=== PATIENT | male | born 1945 | race Caucasian/White ===

== ENCOUNTER 2017-10-03 09:23 | Observation (INO) | payer MEDICARE ==
--- NOTE | 2017-09-14 10:11 | HP ---
CC: Dr. Stephan Diaz * HISTORY AND PHYSICAL: DATE OF PLANNED ADMISSION AND SURGERY: 10/03/17 HISTORY OF PRESENT ILLNESS: Mr. Hong is a 72-year-old white male who is admitted with prostate enlargement, bladder outlet obstruction and recurrent episodes of acute prostatitis for transurethral resection of the prostate. I have been following Mr. Hong for almost 20 years because of prostate nodule, bladder outlet obstruction, and recurrent episodes of gross hematuria. He had a total of 5 prostate biopsies because of a hard nodule noted in the right lobe of the prostate. The last biopsy was done in 2005. The biopsies showed chronic and acute prostatitis, but no malignancy. The patient has had frequent and recurrent episodes of acute prostatitis, some of them associated with fever and chills and gross hematuria. He had workup of his upper tracts which were normal, cystoscopy which showed an enlarged and obstructing prostate with bladder trabeculations. He was started on finasteride in 2011 and was then placed on tamsulosin. His voiding symptoms improved; however, he continued to have recurrent episodes of acute prostatitis with the last episode occurring about 4 months ago. He had recent repeat work-up with cystoscopy, which again showed an enlarged and obstructing prostate, and bladder trabeculations. Urodynamic studies showed a high voiding detrusor pressure of 70 cm of water. His flowmetry was slow with a peak flow of 5 mL per second. His post void residual, however, was mildly elevated at 50 cc. Because of the above history and findings, the recurrent episodes of acute prostatitis and the fact that his obstructive voiding symptoms have not fully resolved on the medical treatment, a TURP was advised and accepted. PAST MEDICAL HISTORY AND SYSTEM REVIEW: He is in very good health. He denies any cardiac or pulmonary diseases or symptoms. MEDICATIONS: He is on no other chronic medications. ALLERGIES: He denies any allergies to medications. PHYSICAL EXAMINATION GENERAL: Pleasant and healthy-looking white male who looks good for his age. VITAL SIGNS: Blood pressure 120/70, pulse of 50. LUNGS: Clear. HEART: Regular and rhythmic. No murmurs. ABDOMEN: Soft, no masses, no tenderness, and no CVA tenderness. GENITOURINARY: External genitalia are normal. He has no inguinal hernia. RECTAL: Exam showed a moderately enlarged prostate with a hard nodule in the right lobe, which has been stable over the last 10 years. LABORATORY DATA: His last PSA last month was stable at 2.8. IMPRESSION: 1. Bladder outlet obstruction and prostate enlargement with partial improvement on full medical treatment with tamsulosin and finasteride. 2. Recurrent episodes of acute prostatitis occurring while on full treatment for the prostate enlargement and bladder outlet obstruction. 3. Stable firm nodule of the prostate with multiple negative prostate biopsies and stable PSA. PLAN: For transurethral resection of the prostate. I discussed the operation in detail with the patient. Some of the potential complications including gross hematuria, infection, small incidence of urethral stricture, invariable occurrence of retrograde ejaculation. The procedure will improve his bladder emptying and his urinary stream and will likely will decrease the frequency of his acute prostatitis episodes, although this is not assured, however, it is likely to help. The plan is to have him start on Bactrim 1 week before the procedure to decrease the risk of post op prostatitis. I discussed the above plans in detail, and all his questions were answered. [id number]/[facility] #: [id number] [place]
[~2017-10-03 09:23] MED LIST: Buffered Lidocaine 0.9% SYRIN* 5 ML/SYR SYRINGE INTRADERM ONE; Famotidine IV* 10 MG/ML 2 ML (20 mg) IV ONE
[2017-10-03] MEDS ORDERED: Buffered Lidocaine 0.9% SYRIN* 5 ML/SYR SYRINGE ONE (09:39)
[2017-10-03] MEDS ORDERED: Famotidine IV* 10 MG/ML 2 ML (20 mg) ONE (09:39)
[2017-10-03] MEDS ORDERED: cefTRIAXone(*) 2 GM ADDV.VIAL IVPB ONE (09:39)
[2017-10-03] MEDS ORDERED: Midazolam* 1 MG/ML 5 ML VIAL (5 MG) ONE (10:59)
[2017-10-03] MEDS ORDERED: fentaNYL* 50 MCG/ML 2 ML VIAL (100 MCG VIAL) ONE (11:15)
[2017-10-03] MEDS ORDERED: Phenylephrine IV* 40 MCG/ML 10 ML SYRINGE ONE (11:47)
[2017-10-03] MEDS ORDERED: EPHEDrine (Pressors)* 50 MG/ML VIAL ONE (11:47)
[2017-10-03] MEDS ORDERED: Lidocaine 2% PF * 5 ML VIAL ONE (11:47)
[2017-10-03] MEDS ORDERED: Propofol* 10 MG/ML 20 ML BTL IV PUSH ONE (11:47)
[2017-10-03] MEDS ORDERED: Ondansetron INJ* 2 MG/ML VIAL ONE (11:47)
[2017-10-03] MEDS ORDERED: Ketorolac INJ* 30 MG/ML 1 ML VIAL ONE (11:47)
[2017-10-03] MEDS ORDERED: oxyCODONE/Acetamin 5/325 MG* TAB PO PRN ×3 (12:21→15:39)
[2017-10-03] MEDS ORDERED: HYDROmorphone INJ* 1 MG/ML CARPUJECT SYRINGE IV PRN (12:21)
[2017-10-03] MEDS ORDERED: DiMENhydriNATE IV* 50 MG/ML VIAL IV PUSH PRN (12:21)
[2017-10-03] MEDS ORDERED: Acetaminophen TAB* 325 MG PO PRN (15:36)
[2017-10-03] MEDS ORDERED: Ibuprofen TAB* 600 MG PO PRN (15:36)
[2017-10-03] MEDS ORDERED: Lidocaine 2% JELLY* 6 ML JELLY TOPICAL PRN (15:39)
[2017-10-03] MEDS ORDERED: Oxybutynin TAB* 5 MG PO PRN (15:40)
--- NOTE | 2017-10-03 17:40 | CONSULT ---
Consult Consult: HOSPITALIST CONSULT: Date of Consultation: 10/03/17 Requesting Provider: Dr. Glover PCP: Dr. Diaz Reason for Consultation: Bradycardia HPI: Mr Hong is a 72 yo M who underwent TURP with Dr Glover earlier today and was noted to be bradycardic in the 40's with an occasional dip into the high 30's while under anesthesia. The patient states that his check his BP/ HR at home with an automated cuff and his HR is most of the time in the 40's. In speaking with Dr. Diaz, his PCP, he relays the patient's most recent HR in the office have been generally bradycardic. He currently denies any lightheadedness, dizziness, chest pain or SOB. He states he is quite active exercising every day. PMHx: HTN (now not on any medications), BPH, peripheral neuropathy and OA. PSHx: TURP, R knee surgery x4 (2 quadriceps tendon repair and 2 meniscus repairs ) and B/L inguinal hernia repairs All: NKDA Medications: Home medications reviewed FamHx: Mom at 78, she had MM; Dad at 65 of suicide. SocHx: Pt is a former smoker quitting approximately 40 years ago. He drinks a small glass of wine nightly. 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 He is and he indicates his is his HCP. He has 3 biologic children and 1 step child-all are healthy. ROS: A complete 11 system review of systems is obtained. Pertinent positives and negatives are as per HPI. PE: BP 114/57 HR 49 RR 16 T 98.1 O2sat 98% on RA gen: elderly male sitting up in bed, NAD HEENT: pupils are round, EOMI, oropharynx is clear and moist, no submandibular, cervical or supraclavicular adenopathy noted. Cardiac: nl S1, S2 bradycardic and slightly irregular. No LE edema Pulmonary: CTA B/L Abdomen: BS + soft, NT, ND, miller in place Musculoskeletal: full active ROM of all 4 extremities, no obvious joint deformities Skin: warm and dry, no rashes Neuro: CN II-XII grossly intact, strength nl in all 4 extremities Psych: A&Ox3 A/P: Mr Hong is a 72 yo M who has a past h/o HTN and peripheral neuropathy is seen in consultation following a TURP for asymptomatic bradycardia. 1. Bradycardia: the patient is completely asymptomatic. He states he still exercises daily without any symptoms. EKG is difficult to interpret but I suspect he has Mobitz type I. Will try to get a longer rhythm strip to confirm. He is not on any AV efrain blockers. Will monitor his VS overnight and monitor for symptoms. The patient has been instructed to alert the nurse if he has any lightheadedness. 2. s/p TURP: management per Dr. Glover 3. DVT-P: SCDs 4. Full code
[2017-10-03] MEDS ORDERED: Finasteride TAB* 5 MG PO SCH (18:00)
--- NOTE | 2017-10-04 04:38 | OP ---
CC: Stephan Diaz MD * DATE OF OPERATION: 10/03/17 - ROOM #339 DATE OF : 41 SURGEON: Santiago Glover MD ANESTHESIOLOGIST: Dr. Godoy ANESTHESIA: Spinal. PREOPERATIVE DIAGNOSES: 1. Benign prostatic hyperplasia. 2. Bladder outlet obstruction due to above. 3. Recurrent episodes of prostatitis. POSTOPERATIVE DIAGNOSES: 1. Benign prostatic hyperplasia. 2. Bladder outlet obstruction due to above. 3. Recurrent episodes of prostatitis. OPERATIVE PROCEDURE: 1. Cystoscopy. 2. Transurethral resection of the prostate. INDICATION FOR PROCEDURE: Mr. Hong is a 72-year-old white male who had a long history of recurrent acute prostatitis episodes. He also had prostate enlargement and bladder outlet obstruction and has been maintained on tamsulosin and on finasteride. Because of increasing voiding symptoms while on full medical treatment and because of persistent recurrent episodes of prostatitis and after workup with cystoscopy and urodynamic studies, TURP was advised and accepted. PATHOLOGY: At cystoscopy, the penile and bulbar urethrae looked normal. The prostatic urethra measured about 3 cm in length. There was significant degree of obstruction by trilobar hyperplasia of the prostate. Examination of the bladder showed moderate diffuse trabeculations. There were no suspicious or bladder lesions seen. No calculi or diverticula were noted. The urethral orifices looked normal. The prostate adenoma was only slightly vascular. PROCEDURE: After successful spinal anesthesia, the patient was placed in the lithotomy position and was prepped and draped for cystoscopy. Cystoscopy was performed. The bladder was carefully inspected and the above findings were noted. The resectoscope was then introduced inside the bladder. Mannitol and sorbitol was used for irrigation. The inflow and outflow were adjusted to avoid overdistention of the bladder. Resection of the median lobe was resected first. The bladder neck was then resected circumferentially. The resectoscope was then positioned at the level of the verumontanum and the resection of the floor of the prostate was performed between 4 o'clock and 7 o' clock allowing the visualization of the bladder neck through the veru. Resection of the left lobe was then performed starting at 5 o'clock and proceeding anteriorly. The right lobe was resected next. The roof and the apical tissues were resected last. The limits of the resection were the veru distally, the capsule circumferentially and the bladder neck proximally. At the completion of the resection, the prostatic urethra was wide open. There was one open sinus at 11 o'clock. There was no capsular perforation. There were no arterial bleeders noted. The ureteral orifices were intact. There were no residual prostate chips after irrigation. The resectoscope was then removed and the size 22-Tunisian Boyer catheter was passed inside the bladder and the balloon inflated with 30 cc of water. The catheter was placed under gentle traction and taped to the right thigh of the patient. Irrigation yielded clear returns. The patient tolerated the procedure well and left the operating room in good condition. The blood loss was estimated at less than 100 cc. The specimen was prostate chips. [id number]/[facility] #: [id number] [facility]
[2017-10-04] MEDS ORDERED: cefTRIAXone(*) 1 GM in D5W 50 ML BAG* 50 ML IVPB ONE (07:00)
[2017-10-04 11:42] VITALS: BP 120/69
--- NOTE | 2017-10-04 23:34 | DS ---
DISCHARGE SUMMARY: DATE OF ADMISSION: 10/03/17 DATE OF DISCHARGE: 10/04/17 FINAL DIAGNOSES: 1. Benign prostatic hyperplasia. 2. Bladder outlet obstruction. 3. Bradycardia. OPERATION: Cystoscopy, transurethral resection of the prostate on 10/03/17. HISTORY: Mr. Hong is a 72-year-old white male who has long history of recurrent episodes of acute prostatitis associated with bladder outlet obstruction and prostate enlargement. He has been maintained on finasteride and on tamsulosin for several years. He recently started having increasing obstructive voiding symptoms and continued to have episodes of prostatitis requiring aggressive antibiotic treatment with the last episode having occurred in March 2017. Workup with cystoscopy showed an enlarged obstructing prostate. Urodynamic studies showed a high voiding detrusor pressure of 70 cm of water with a slow uroflowmetry and a slightly elevated postvoid residual of 50 cc. Because of the above history and findings, TURP was advised and accepted. Past medical history is negative. He was worked up about 5 years ago by Cardiology because of bradycardia and was told it was a benign condition and no treatment was suggested. He has been totally asymptomatic from his heart. He had noted slow pulse in the 40's for several years, and has been asymptomatic. Preoperative physical examination was normal. His blood pressure was 120/70 and his pulse was 50 and regular. The prostate showed a nodule in the right lobe, which has been present for many years and had underwent several prostate biopsies for it. All of the biopsies were benign, showing acute & chronic prostatitis. Lab data all within normal. PSA 2.8. COURSE IN HOSPITAL: The patient was admitted on the morning of his surgery. He underwent an uncomplicated transurethral resection of the prostate under spinal anesthesia. His surgical postoperative course was very smooth. He was, however, observed on telemetry postoperatively overnight because of bradycardia with his heart rate about 40. There were no associated arrhythmias and he was totally asymptomatic having no lightheadedness or shortness of breath or a drop in his blood pressure. He was followed post-op by the hospitalist service for his bradycardia. On his postoperative day #1, the urine was clear and he remained totally asymptomatic with normal vital signs except for the bradycardia. The patient was evaluated by the hospitalist service to observe his overnight monitoring and they felt the condition is chronic and it is safe to discharge him home. He will be seeing Dr. Diaz, his basin finish operator tig welder, next week. The patient is being discharged home on finasteride and on Boyer catheter drainage. He will be seen in my office in 5 days for Boyer catheter removal. Instructions were given for followup care. Pathology on the resected prostate tissue was benign. [id number]/[facility] #: [id number] [place]
== END 2017-10-04 11:40 | disposition home or self-care (01) ==
LOC: OR 09:23 → SSU 15:57
PROVIDERS: ADMIT Urology; ATTEND Urology
DX: N40.1 Benign prostatic hyperplasia with lower urinary tract symptoms (principal); N13.8 Other obstructive and reflux uropathy; R00.1 Bradycardia, unspecified; Z87.891 Personal history of nicotine dependence; I10 Essential (primary) hypertension; M19.90 Unspecified osteoarthritis, unspecified site; N41.8 Other inflammatory diseases of prostate
CPT/HCPCS: 88305; 93005; 96374; 96375; 96376; A9270-GY; G0378; J0696; J1885; J2250; J2405; J2704; J3010

== ENCOUNTER 2019-03-25 07:04 | Observation (INO) | payer MEDICARE ==
[2019-03-25 07:50] LABS: ABS Basophils 0.1 10^3/ul (0-0.2); ABS Eosinophils 0.1 10^3/ul (0-0.6); ABS Lymphocytes 2.1 10^3/ul (1.0-4.8); ABS Monocytes 0.8 10^3/ul (0-0.8); ABS Neutrophils 3.5 10^3/ul (1.5-7.7); Eosinophil % 2.2 %; Hematocrit 44 % (42-52); Hemoglobin 14.8 g/dL (14.0-18.0); Mean Corpuscular HGB Conc 34 g/dL (31-36); Mean Corpuscular Hemoglobin 32 pg (27-31); Mean Corpuscular Volume 94 fL (80-94); Mean Platelet Volume 8.4 fL (7.4-10.4); Nucleated Red Blood Cells % 0.1; Platelet Count 278 10^3/uL (150-450); Red Blood Count 4.69 10^6 /uL (4.18-5.48); Red Cell Distribution Width 13 % (10-15); White Blood Count 6.6 10^3/uL (3.5-10.8)
[2019-03-25] MEDS ORDERED: ceFAZolin VIAL 1 GM in NS *SYRINGE * * 10 ML ONE (08:00)
[2019-03-25] MEDS ORDERED: ceFAZolin* 2 GM* ONE DOSE (Duplex) IVPB (08:00)
[2019-03-25] MEDS ORDERED: Diazepam TAB(*) 5 MG ONE (08:19)
[2019-03-25] MEDS ORDERED: fentaNYL* 50 MCG/ML 2 ML VIAL (100 MCG VIAL) ONE (08:26)
[2019-03-25] MEDS ORDERED: Lidocaine 1% INJ* 10 MG/ML 30 ML SDV ONE (08:26)
[2019-03-25] MEDS ORDERED: Midazolam* 1 MG/ML 5 ML VIAL (5 MG) ONE (08:26)
[2019-03-25] MEDS ORDERED: oxyCODONE/Acetamin 5/325 MG* TAB PO PRN (09:40)
[2019-03-25] MEDS ORDERED: Acetaminophen TAB* 325 MG PO PRN (09:40)
[2019-03-25] MEDS: Metoprolol Tartrate TAB* 25 MG PO SCH ×2 (13:40→20:52)
[2019-03-25] MEDS: ceFAZolin VIAL(*) 1 GM in NS 0.9% 50 ML* 50 ML IVPB SCH (17:04)
[2019-03-25] MEDS ORDERED: Aspirin EC TAB* 81 MG TAB.EC PO SCH (18:00)
--- NOTE | 2019-03-25 21:10 | OP ---
CC: Dr. Simon Oreilly * DATE OF OPERATION: 03/25/19 - ROOM #451 DATE OF : 41 SURGEON: Micah Hernández MD ANESTHESIA: Local anesthesia with conscious sedation. PRE-OP DIAGNOSES: 1. Second-degree heart block. 2. Bradycardia. POST-OP DIAGNOSIS: 1. Second-degree heart block. 2. Bradycardia. OPERATIVE PROCEDURE: Dual-chamber pacemaker implantation. ESTIMATED BLOOD LOSS: Nil. COMPLICATIONS: None. INDICATIONS: The patient is a 74-year-old gentleman, who has been having episodes of significant bradycardia and lightheadedness. An EKG showed second- degree heart block type 2. Permanent pacemaker implantation was recommended. DESCRIPTION OF PROCEDURE: The patient was brought to the procedure room in a fasting state. Informed consent had been obtained prior to the procedure. All labs had been reviewed. The patient was placed supine on the catheterization table. The left deltopectoral area was cleaned and draped in the usual fashion. 1% lidocaine was used for local anesthesia. Under ultrasound guidance , the axillary vein was entered via modified Seldinger technique and a guidewire was placed. A second guidewire was placed in the same technique. A 3.5 cm incision was made in the pectoral area. Blunt dissection was carried down to the pectoral fascia and a pocket was fashioned for the pacemaker. Over the first guidewire, a 6- Sudanese sheath introducer was placed, through which a right ventricular lead was advanced to the septum. The right ventricular lead is a [employer] model 2088TC, serial number [id number] and had an R-wave sensitivity of 6.6, impedance 838 ohms, threshold 1.1 volts at 0.4 milliseconds. The ventricular lead was sutured to the pectoral fascia. Over the second guidewire, a 6-Sudanese sheath introducer was placed, through which a right atrial lead was advanced to the high right atrium. The right atrial lead is a [employer] model 2088TC, serial number [id number]. It had P-wave sensitivity of 2.1, impedance 399 ohms, threshold 0.6 volts at 0.4 milliseconds. The atrial lead was sutured to the pectoral fascia. The pocket was flushed. A generator was attached appropriately to the atrial and ventricular leads. The generator is a [employer] model AJ3526, serial number [id number]. Surgical incision was closed in 3 layers. The patient was sent to the holding area in stable condition. [id number]/[facility] #: [id number] [address] [facility]PITAL[facility]son
[2019-03-26] MEDS: ceFAZolin VIAL(*) 1 GM in NS 0.9% 50 ML* 50 ML IVPB SCH ×2 (00:21→08:28)
[2019-03-26] MEDS: Metoprolol Tartrate TAB* 25 MG PO SCH (08:28)
[2019-03-26] MEDS ORDERED: Finasteride TAB* 5 MG PO SCH (09:00)
--- NOTE | 2019-03-26 10:52 | PN ---
<Alia Varghese - Last Filed: 03/26/19 10:47> Subjective Date of Service: 03/26/19 - s/p DC PPM due to high degree AVB Interval History: No events last night, patient offers no complaints. Denies chest pain, sob, dizziness, palpitations. He is anxious to go home. Medications Active Medications: Acetaminophen (Tylenol Tab*) 650 mg PO Q4H PRN PRN Reason: FEVER/PAIN Aspirin (Aspirin Ec Tab*) 81 mg PO QPM [facility] Last Admin: 03/25/19 17:04 Dose: 81 mg Finasteride (Proscar Tab*) 5 mg PO DAILY [facility] Last Admin: 03/26/19 08:28 Dose: 5 mg Metoprolol Tartrate (Lopressor Tab*) 25 mg PO BID [facility] Last Admin: 03/26/19 08:28 Dose: 25 mg Oxycodone/Acetaminophen (Percocet 5/325 Tab*) 1 tab PO Q4H PRN PRN Reason: PAIN Objective Vital Signs: Temp Pulse Resp BP Pulse Ox 98.2 F 60 16 145/87 95 03/26/19 07:15 03/26/19 07:15 03/26/19 07:15 03/26/19 07:15 03/26/19 09:00 Oxygen Devices in Use Now: None Appearance: well nourished, A+O x3 cooperative with exam Eyes: No Scleral Icterus, PERRLA Neck: NL Appearance and Movements; NL JVP Respiratory: Symmetrical Chest Expansion and Respiratory Effort, Clear to Auscultation Cardiovascular: NL Sounds; No Murmurs; No JVD, No Edema, - - left anterior device site is intact, no hematoma. non tender to palpation. edges well approximated. no oozing noted Abdominal: NL Sounds; No Tenderness; No Distention Extremities: No Edema Skin: No Rash or Ulcers Neurological: Alert and Oriented x 3 Lines/Tubes/Other Access: Clean, Dry and Intact Peripheral IV Laboratory Results: 03/25/19 07:44 Diagnostic Imaging: cxr is pending EKG Data: 03/26/2019; AV Paced rate 100 Telemetry; Paced HR 60'70's Assessment/Plan #1 h/o High degree AVB s/p DC PPM 03/25/[address] Dyevi Hernández. No complications thus far. Device check reviewed. A lead pacing threshold 0.4ms, RV pacing threshold 0.4ms. Device site inspected. No evidence of hematoma. edges are well approximated. No c/o chest pain or SOB. CXR is pending. If negative for pneumothorax then patient is to be discharged later this morning. RX for Keflex 250mg Po TIDx 3 days sent to [facility]. He is to f/u with Dr. Oreilly as planned which is outlined in discharge plan. I reviewed wound care with his present in the room. He is aware that he will need to wear left upper extremity arm immobilizer for 6 weeks. #2 HTN; SBP during admit has been in 140-170's he was started on Lopressor therapy which was sent to his pharmacy. Per outpatient notes last echo 03/18/2019 revealed mild to moderate LVH. #3 DVT prophylaxsis; patient has been up and ambulating #4 Disposition pending course will likely be discharged later this morning after CXR. Attending: Ingrid Wyatt <Ingrid Wyatt - Last Filed: 03/28/19 00:10> Objective Vital Signs: Temp Pulse Resp BP Pulse Ox 98.7 F 60 16 150/94 98 03/26/19 11:08 03/26/19 11:08 03/26/19 11:08 03/26/19 11:08 03/26/19 11:08 Laboratory Results: 03/25/19 07:44 Assessment/Plan 03.28.2019. 12:09 am. pt seen and examined. Plan of care d/w TARIQ Varghese. and Agree with the above plan.
[2019-03-26 11:26] VITALS: BP 150/94
--- NOTE | 2019-03-26 12:22 | DS ---
DISCHARGE SUMMARY: DATE OF ADMISSION: 03/25/19 TENTATIVE DATE OF DISCHARGE: Pending no complications, 03/26/19. ATTENDING PHYSICIAN: Dr. Wyatt, Cardiology.* (DICTATED BY MARYANA TRACY NP ) PRIMARY DISABILITY INSURANCE CLAIM EXAMINER: Dr. Simon Oreilly. PRIMARY PHYSICIAN: Dr. Stephan Diaz. ADMITTING DIAGNOSES: 1. History of high-degree heart block, here for elective pacemaker implant. 2. History of left ventricular hypertrophy. DISCHARGE DIAGNOSES: 1. History of high-degree AV block, status post DC pacemaker, [employer] implant , 03/25/[address] Micah Hernández. To be discharged home on Keflex 250 mg p.o. t.i.d. for 3 days. Follow up with Dr. Simon Oreilly on 04/02/19. 2. Hypertension. During hospital stay, systolic blood pressure 140 to 170. The patient was started on Lopressor therapy, script sent into [facility] [place]. Outpatient echo 03/18/19 revealed [id number] left ventricular hypertrophy. PROCEDURES PERFORMED: On 03/25/19, the patient had successful dual-chamber pacemaker implantation with Dr. Micah Hernández due to high-degree AV block. Right ventricular lead is [employer], model 2088TC, serial number [id number]. Pacing threshold prior to discharge was 0.4 msec. The right atrial lead is a [employer], model 2088TC, serial number [id number]. Pacing threshold prior to discharge 0.[address] is [employer], model LZ1138, serial number [id number]. COMPLICATIONS: None thus far. COURSE OF HOSPITAL STAY: This is a pleasant 74-year-old male patient who follows Dr. Simon Oreilly of our practice. He presented to our practice for evaluation on 03/19/19 due to heart block. Prior ECGs were reviewed according to medical records. Apparently, he had a history of sinus bradycardia several beats that likely conducted with type 1 physiology, although there was AV dissociation with the stable junctional escape rhythm. Echocardiogram 03/18/19 , LVEF of 60% to 65%, [id number] LVH. There is mild pulmonary hypertension, mild to moderate mitral regurgitation. AV conduction and AV dissociation was noted during the study. Recommendation was for pacemaker implantation and Lexiscan stress test to rule out amyloid doses due to AV dissociation. The patient presented to [facility] on 03/25/19 for elective pacemaker implantation. Prior to procedure, he had basic blood work, white count 6.6, hemoglobin 14.8, hematocrit 44, platelets 278. On 03/18/19, sodium was 142, potassium 4.2, chloride 107, carbon dioxide 28, creatinine 0.99. He underwent the above-mentioned procedure, postprocedure he was transferred to [facility] where he has been monitored on telemetry, no complications have occurred. His is at bedside. Left anterior device site was inspected. There is no evidence of hematoma. Edges are well approximated. Scant dried blood noted on dressing, nontender to palpation. Chest x-ray is pending to rule out pneumothorax. This morning, the device interrogation was reviewed. It is essentially normal device interrogation. RV pacing threshold 0.4 msec, right atrial lead pacing threshold 0.4 msec. Thus, pending no complications, the patient will be discharged home later today. Given hypertension during hospital stay, the patient was started on beta- blockade therapy, which he has been tolerating. Prescription will be sent to pharmacy. DRIVING: The patient was instructed to not drive until he follows up with Dr. Simon Oreilly next week on 04/02/19. RESTRICTIONS: The patient is aware to use left upper extremity arm immobilizer for 6 weeks. He is aware that he is not able to lift more than 5 to 10 pounds for 6 weeks. He is aware that he is to not lift left arm above shoulder for 6 weeks. The patient was instructed that he may shower starting tomorrow, 03/27/19 , but is to not soak left anterior device site, i.e., bathe, utilize hot tub or swim. WOUND CARE: I personally reviewed and discussed in detail with the patient and his present. Wound care instructions, which includes changing dressing daily until he follows up with Dr. Simon Oreilly. He is aware that if he develops any swelling, signs or symptoms of infection such as fever, chills, inflammation, or oozing from the device site, to seek medical evaluation. DISCHARGE MEDICATIONS: Includes: 1. Keflex 250 mg p.o. t.i.d. for 3 days. 2. Lopressor 25 mg p.o. b.i.d. 3. Tylenol 650 mg p.o. q.6h. p.r.n. 4. Vitamin D3 1000 units p.o. daily. 5. Finasteride 5 mg a day. 6. Multivitamin 1 tablet daily. 7. Aspirin 81 mg a day. FOLLOWUP APPOINTMENTS: 1. As mentioned before, Dr. Simon Oreilly, 04/02/19 at 0910. 2. Primary physician, Dr. Stephan Diaz, in [address] Wyatt agrees with the above assessment and plan. We will await for chest x- ray. As long as imaging is negative for pneumothorax, he will be discharged home later today. MARYANA TRACY NP [id number]/[facility] #: [id number] [place]
== END 2019-03-26 13:33 | disposition home or self-care (01) ==
LOC: CHICATH 07:04 → MEDTELE 10:06
PROVIDERS: ADMIT Specialist; ATTEND Specialist
DX: I45.5 Other specified heart block (principal); G62.9 Polyneuropathy, unspecified; R00.1 Bradycardia, unspecified; E85.9 Amyloidosis, unspecified; I51.7 Cardiomegaly; I10 Essential (primary) hypertension; Z79.82 Long term (current) use of aspirin; Z79.899 Other long term (current) drug therapy; Z87.891 Personal history of nicotine dependence; K44.9 Diaphragmatic hernia without obstruction or gangrene
CPT/HCPCS: 33207; 36415; 71045; 71046; 85025; 93005; 96365; 96366; 99156; 99157; A9270-GY; C1785; C1898; G0378; J0690; J2250; J3010

== ENCOUNTER 2022-04-24 12:41 | Observation (INO) ==
[2022-04-24 13:45] LABS: ABS Basophils 0.1 10^3/ul (0-0.2); ABS Eosinophils 0.1 10^3/ul (0-0.6); ABS Lymphocytes 1.8 10^3/ul (1.0-4.8); ABS Monocytes 0.8 10^3/ul (0-0.8); ABS Neutrophils 4.7 10^3/ul (1.5-7.7); Eosinophil % 1.2 %; Hematocrit 33 % (42-52); Hemoglobin 10.1 g/dL (14.0-18.0); Lymphocyte % 23.8 %; Mean Corpuscular HGB Conc 30 g/dL (31-36); Mean Corpuscular Hemoglobin 22 pg (27-31); Mean Corpuscular Volume 74 fL (80-94); Mean Platelet Volume 7.2 fL (7.4-10.4); Nucleated Red Blood Cells % 0.1; Platelet Count 359 10^3/uL (150-450); Red Blood Count 4.55 10^6 /uL (4.18-5.48); Red Cell Distribution Width 19 % (10-15); White Blood Count 7.5 10^3/uL (3.5-10.8)
[2022-04-24 14:33] LABS: ALT 7 U/L (7-52); Albumin 4.3 g/dL (3.2-5.2); Albumin/Globulin Ratio 1.3 (1-3); Alkaline Phosphatase 69 U/L (35-149); Blood Urea Nitrogen 22 mg/dL (6-24); CO2 Carbon Dioxide 26 mmol/L (22-32); Calcium 9.7 mg/dL (8.6-10.3); Chloride 103 mmol/L (101-111); Globulin 3.3 g/dL (2-4); Glucose 89 mg/dL (70-100); Sodium 140 mmol/L (135-145); Total Protein 7.6 g/dL (6.4-8.9); eGFR CKD-EPI 57.5 (>60)
[2022-04-24 14:36] LABS: Anion Gap 11 mmol/L (2-11)
[2022-04-24 15:59] LABS: AST Redraw 16 U/L (13-39)
[2022-04-24] MEDS ORDERED: Iohexol 350 (CONTRAST) 500 ML MDV IV ONE (16:23)
[2022-04-24] MEDS ORDERED: Heparin 5000 UNITS/ML 1 mL VIAL IV SCH (18:00)
[2022-04-24 18:44] LABS: Ferritin 10.5 ng/mL (24-336)
[2022-04-24] MEDS: Heparin DRIP 25,000 UNITS BAG 25,000 UNITS/500 ML BAG IV SCH (18:47)
[2022-04-24 18:48] LABS: Folate > 20.00 ng/mL (5.90-24.80); Vitamin B12 512 pg/mL (180-914)
[2022-04-24 19:04] LABS: Total Iron Binding Capacity 465 mcg/dL (250-450); Transferrin 332 mg/dL (203-362)
[2022-04-24 19:05] LABS: % Iron Saturation 4 % (15-55); Iron < 20 ug/dL (50-212); Unsaturated Iron Binding 445 ug/dL
[2022-04-24 19:32] LABS: Magnesium 2.2 mg/dL (1.9-2.7)
[2022-04-24] MEDS ORDERED: Cholecalciferol (VIT D3) 1,000 unit TAB PO SCH (21:00)
[2022-04-24] MEDS ORDERED: Multivitamins/Minerals TAB PO SCH (21:00)
[2022-04-25] MEDS ORDERED: TAFAMIDIS MEGLUMINE PO SCH (00:30)
[2022-04-25] MEDS: Heparin DRIP 25,000 UNITS BAG 25,000 UNITS/500 ML BAG IV SCH (01:06)
[2022-04-25 07:37] LABS: Hematocrit 30 % (42-52); Hemoglobin 9.4 g/dL (14.0-18.0); Mean Corpuscular HGB Conc 31 g/dL (31-36); Mean Corpuscular Hemoglobin 23 pg (27-31); Mean Corpuscular Volume 74 fL (80-94); Platelet Count 305 10^3/uL (150-450); Red Cell Distribution Width 19 % (10-15); White Blood Count 6.3 10^3/uL (3.5-10.8)
[2022-04-25 07:57] LABS: Calcium 8.5 mg/dL (8.6-10.3); Magnesium 2.2 mg/dL (1.9-2.7)
[2022-04-25 08:02] LABS: eGFR CKD-EPI 60.3 (>60)
[2022-04-25] MEDS ORDERED: Iron Sucrose 200 MG in NS 0.9% 100 ml BAG 100 ML IVPB SCH (09:00)
[2022-04-25] MEDS ORDERED: Cholecalciferol (VIT D3) 1,000 unit TAB PO SCH (09:00)
[2022-04-25] MEDS ORDERED: [UNRECOGNIZED DRUG - OTHER] PO SCH (09:00)
[2022-04-25 15:40] VITALS: BP 121/72
[2022-04-26 23:41] LABS: Phospholipid IgM AB 9.8 MPL
[2022-04-27 09:25] LABS: Beta 2 Glycoprotein IgG <9.4 U/mL
[2022-04-27 10:25] LABS: Protein C Activity 94 % (70 - 150)
== END 2022-04-25 17:10 | disposition home or self-care (01) ==
LOC: MEDTELE 12:41 → ED 12:41 → SUATTDRO 17:41 → MEDTELE 22:52
PROVIDERS: ADMIT Internal Medicine; ATTEND Hospitalist

== ENCOUNTER 2022-08-10 13:08 | Observation (INO) ==
[2022-08-10 14:46] LABS: ABS Basophils 0.1 10^3/ul (0-0.2); ABS Lymphocytes 1.8 10^3/ul (1.0-4.8); ABS Monocytes 0.6 10^3/ul (0-0.8); ABS Neutrophils 7.6 10^3/ul (1.5-7.7); Hematocrit 38 % (42-52); Hemoglobin 12.7 g/dL (14.0-18.0); Lymphocyte % 17.8 %; Mean Corpuscular HGB Conc 34 g/dL (31-36); Mean Corpuscular Hemoglobin 32 pg (27-31); Mean Corpuscular Volume 95 fL (80-94); Mean Platelet Volume 8.3 fL (7.4-10.4); Platelet Count 278 10^3/uL (150-450); Red Blood Count 3.98 10^6 /uL (4.18-5.48); Red Cell Distribution Width 19 % (10-15); White Blood Count 10.1 10^3/uL (3.5-10.8)
[2022-08-10 14:53] LABS: INR 1.62 (0.89-1.11)
[2022-08-10 15:23] LABS: Albumin 4.1 g/dL (3.2-5.2); Albumin/Globulin Ratio 1.5 (1-3); Calcium 9.5 mg/dL (8.6-10.3); Globulin 2.8 g/dL (2-4); Potassium 4.8 mmol/L (3.5-5.0); Total Bilirubin 0.4 mg/dL (0.2-1.0); Total Protein 6.9 g/dL (6.4-8.9)
[2022-08-10] MEDS ORDERED: Iodixanol (CONTRAST) 320 MG/ML 100 ML SDV IV ONE (15:40)
[2022-08-10 16:25] LABS: High Sensitivity Troponin 1 Hr 15 pg/mL (<20)
[2022-08-10] MEDS ORDERED: NS 0.9% 1000 ml BAG 1,000 ML IV ONE (22:58)
[2022-08-11] MEDS ORDERED: Ondansetron 4 mg VIAL 2 MG/ML 2 ml VIAL IV PRN (00:21)
[2022-08-11] MEDS: Pantoprazole 80 mg in NS BAG 80 MG/250 ML BAG IV ONE ×2 (01:10→03:07)
[2022-08-11 01:23] LABS: Hematocrit 32 % (42-52); Hemoglobin 10.5 g/dL (14.0-18.0); Mean Corpuscular HGB Conc 33 g/dL (31-36); Mean Corpuscular Hemoglobin 31 pg (27-31); Mean Corpuscular Volume 94 fL (80-94); Mean Platelet Volume 8.6 fL (7.4-10.4); Platelet Count 254 10^3/uL (150-450); Red Blood Count 3.36 10^6 /uL (4.18-5.48); Red Cell Distribution Width 18 % (10-15); White Blood Count 12.9 10^3/uL (3.5-10.8)
[2022-08-11 08:58] LABS: Hematocrit 31 % (42-52); Hemoglobin 10.4 g/dL (14.0-18.0); Mean Corpuscular HGB Conc 33 g/dL (31-36); Mean Corpuscular Hemoglobin 32 pg (27-31); Mean Corpuscular Volume 95 fL (80-94); Mean Platelet Volume 8.5 fL (7.4-10.4); Platelet Count 231 10^3/uL (150-450); Red Blood Count 3.29 10^6 /uL (4.18-5.48); Red Cell Distribution Width 18 % (10-15); White Blood Count 10.3 10^3/uL (3.5-10.8)
[2022-08-11 09:05] LABS: INR 1.28 (0.89-1.11)
[2022-08-11 09:13] LABS: Calcium 8.6 mg/dL (8.6-10.3); Potassium 4.2 mmol/L (3.5-5.0)
[2022-08-11 09:19] LABS: eGFR CKD-EPI 59.7 (>60)
[2022-08-11 09:58] LABS: ABS Basophils 0.1 10^3/ul (0-0.2); ABS Lymphocytes 2.6 10^3/ul (1.0-4.8); ABS Neutrophils 6.6 10^3/ul (1.5-7.7); Eosinophil % 0.3 %; Lymphocyte % 25.5 %
[2022-08-11] MEDS ORDERED: Midazolam 5 mg/5 ml VIAL 1 mg/ml 5 ml VIAL (5 mg) ONE (13:42)
[2022-08-11] MEDS ORDERED: fentaNYL 100 mcg/2 ml 50 MCG/ML VIAL ONE (13:42)
[2022-08-11 16:18] LABS: Hematocrit 31 % (42-52)
[2022-08-11] MEDS: TAFAMIDIS MEGLUMINE 20 MG PO SCH (16:34)
[2022-08-11] MEDS: Pantoprazole VIAL 40 MG VIAL IV SCH (20:40)
[2022-08-12 07:03] LABS: Hematocrit 27 % (42-52)
[2022-08-12] MEDS: Pantoprazole VIAL 40 MG VIAL IV SCH (09:15)
[2022-08-12] MEDS: TAFAMIDIS MEGLUMINE 20 MG PO SCH (09:15)
[2022-08-12 09:34] LABS: Calcium 8.5 mg/dL (8.6-10.3); Potassium 4.1 mmol/L (3.5-5.0); eGFR CKD-EPI 66.8 (>60)
[2022-08-12 11:10] VITALS: BP 127/79
[2022-08-12 12:06] LABS: Hematocrit 31 % (42-52); Hemoglobin 9.8 g/dL (14.0-18.0)
== END 2022-08-12 14:10 | disposition home or self-care (01) ==
LOC: ED 13:08 → EDHOLD 13:08 → SUATTDRO 08-11 00:22 → MED 08-11 05:12
PROVIDERS: ADMIT Student in an Organized Health Care Education/Training Program; ATTEND Internal Medicine